=== PATIENT | male | born 1990 | race African-American/Black ===

== ENCOUNTER 2023-06-23 18:08 | Emergency (ER) | payer BC, OTHER | END 2023-06-23 19:49 | disposition home or self-care (01) | LOC: NAV ERS 18:08 | DX: S80.01XA Contusion of right knee, initial encounter (principal); M62.838 Other muscle spasm; V40.1XXA Car passenger injured in collision with pedestrian or animal in nontraffic accident, initial encounter | CPT/HCPCS: 72125 ==